=== PATIENT | female | born 1945 ===

== ENCOUNTER 2017-11-30 07:26 | Emergency (ER) | payer SELFPAY ==
--- NOTE | 2017-11-30 08:46 | UC ---
Complaint Female HPI - HPI Summary HPI Summary: She is a pleasant 72 yr old female who presents with urinary symptoms- frequency , urgency , dysuria that started yesterday, today she noted blood in urine today . She has had 2 prior episodes in past as well but this time noted blood. she denies any fever , chills, abdominal pain , nausea or vomiting . Denies any bleeding anywhere else. She denies any other symptoms. - History Of Current Complaint Chief Complaint: [facility]CGU Stated Complaint: URINARY ISSUE Time Seen by Provider: 11/30/17 08:30 Hx Obtained From: Patient - Patients daughter in room as well. ?: No Onset/Duration: Sudden Onset, Lasting Days - 1 day Timing: Constant Severity Initially: Mild Severity Currently: Moderate Pain Intensity: 5 - suprapubic pain Pain Scale Used: 0-10 Numeric Radiates to: no radiation Character: Dull, Burning, Cramping Aggravating Factor(s): Urination Alleviating Factor(s): Nothing, Other - when not urinating Associated Signs And Symptoms: Negative: Fever, Back Pain, Vaginal Bleeding/ Discharge, Vaginal Discharge, Nausea, Vomiting(# Of Episodes =) Related Hx: Similar Episode/Dx as: - 2 peisodes of UTI in past - Allergies/Home Medications Allergies/Adverse Reactions: Allergies Allergy/AdvReac Type Severity Reaction Status Date / Time No Known Allergies Allergy Verified 11/30/17 08:05 PMH/Surg Hx/FS Hx/Imm Hx Previously Healthy: Yes - had 2 episodes of UTI in past Other Endocrine History: negative Other Cardiovascular History: negative Other Respiratory History: negative Other Neurological History: negative Other Psychological History: nega - Surgical History Surgical History: Yes Surgery Procedure, Year, and Place: TONSILLECTOMY AT AGE 20. REPAIR RIGHT HAND 2 YEARS AGO - BROKE WHEN SHE TRIPPED ON STEP - Family History Known Family History: Positive: Other - family history aof cancers- not clear which one but telss different on Negative: Blood Disorder - Social History Occupation: Unemployed Lives: With Family - visiting from [place] and staying with daughter Alcohol Use: None Substance Use Type: None Smoking Status (MU): Never Smoked Tobacco Review of Systems Constitutional: Negative Skin: Negative, Rash Eyes: Negative ENT: Negative Cardiovascular: Negative, Other - has high blood pressure, has never taken medications. Gastrointestinal: Abdominal Pain - suprapubic pain Genitourinary: Dysuria, Hematuria, Frequency, Urgency Motor: Negative Neurovascular: Negative Musculoskeletal: Negative Neurological: Negative Is Patient Immunocompromised?: No All Other Systems Reviewed And Are Negative: Yes Physical Exam Triage Information Reviewed: Yes Appearance: Well-Appearing, No Pain Distress Vital Signs: Initial Vital Signs Temp 97.1 F 11/30/17 07:53 Pulse 62 11/30/17 07:53 Resp 16 11/30/17 07:53 BP 180/72 11/30/17 07:53 Pulse Ox 100 11/30/17 07:53 Vital Signs Reviewed: Yes Eyes: Positive: Conjunctiva Clear ENT: Negative: Nasal congestion, Trismus, Muffled voice, Hoarse voice Respiratory Exam: Normal Respiratory: Positive: Lungs clear, Normal breath sounds, No respiratory distress. Negative: Crackles, Rhonchi, Wheezing Cardiovascular Exam: Normal Cardiovascular: Positive: RRR, No Murmur, Pulses Normal Abdomen Description: Positive: No Organomegaly, Soft, Other: - Tenderness is noted in the suprapubic region.. Negative: CVA Tenderness (R), CVA Tenderness ( L), Distended, Guarding Complaint Female Dx - Course Course Of Treatment: On UA, nitrite negative but she has gross hematuria and symptoms of UTI. Planned to start her on antibiotics - Differential Dx/Diagnosis Differential Diagnosis/HQI/PQRI: Ureteral Stone, Urinary Tract Infection, Other - Urinary Bladder cancer Provider Diagnoses: Hemorrhagic cystitis Discharge - Sign-Out/Discharge Documenting (check all that apply): Discharge/Admit/Transfer - Discharge Plan Condition: Stable Disposition: HOME Patient Education Materials: Urinary Tract Infection in Older Adults (ED), Hematuria (ED) Referrals: No Primary Care Phys,NOPCP [Primary Care Provider] - 2 Days Additional Instructions: There is blood in your urine and likely it is due to infection, but a possibility of stone or cancer cannot be ruled out. Seek medical attention and return to ER in [facility] if symptoms get worse , develop fever or you notice more blood in urine or if your symptoms do not resolve within 2 days. You should follow up with your Primary doctor and a urologist when you reach [place] next week. . - Billing Disposition and Condition Condition: STABLE Disposition: HOME
== END 2017-11-30 09:26 | disposition home or self-care (01) ==
LOC: UCEAST 07:26
DX: N30.91 Cystitis, unspecified with hematuria (principal); Z87.440 Personal history of urinary (tract) infections
CPT/HCPCS: 81003; 87086; 99202; G0463